=== PATIENT | female | born 1950 | race Caucasian/White ===

== ENCOUNTER 2019-10-16 10:40 | Inpatient (IN) ==
[2019-10-16] MEDS ORDERED: CeFAZolin Syr 2,000MG/20 ML 2,000 MG/20 ML SYRINGE IVPB ONE (11:13)
[2019-10-16] MEDS ORDERED: Ringers Solution, Lactated 1,000 ML IVC SCH (11:15)
[2019-10-16] MEDS ORDERED: *HR* Propofol 200 MG/20 ML VIAL IVP ONE (11:52)
[2019-10-16] MEDS ORDERED: *HR* FentaNYL (PF) 100 MCG/2 ML VIAL ONE ×2 (11:52→23:56)
[2019-10-16] MEDS ORDERED: Lidocaine -MPF 2% 2 ML VIAL ONE ×2 (11:53→23:59)
[2019-10-16] MEDS ORDERED: *HR* Succinylcholine 200 MG/10 ML VIAL IVP ONE ×2 (11:53→23:58)
[2019-10-16] MEDS ORDERED: Ondansetron 4 MG/2 ML VIAL ONE ×2 (11:53→18:21)
[2019-10-16] MEDS ORDERED: *HR* Rocuronium Bromide 50 MG/5 ML VIAL ONE ×2 (11:53→23:58)
[2019-10-16] MEDS ORDERED: Dexamethasone 4 MG/ML VIAL ONE (11:53)
[2019-10-16] MEDS ORDERED: Hydrocortisone Sodium Succ 100 MG/2 ML VIAL IVP ONE (12:42)
[2019-10-16] MEDS ORDERED: Famotidine 20 MG/2 ML VIAL IVP ONE (12:42)
[2019-10-16] MEDS ORDERED: Pregabalin 75 MG CAPSULE PO ONE (12:45)
[2019-10-16 12:47] LABS: Prothrombin Time 11.7 Seconds (9.4-12.1)
[2019-10-16 12:50] LABS: Activated Partial Thrombo Time 32.1 Seconds (26.0-36.0)
[2019-10-16] MEDS ORDERED: *HR* FentaNYL (PF) 100 MCG/2 ML VIAL IVP PRN (12:53)
[2019-10-16] MEDS ORDERED: Ondansetron 4 MG/2 ML VIAL IVP ONE (12:55)
[2019-10-16] MEDS ORDERED: Albuterol 2.5 MG/3 ML NEBULIZER IH PRN (12:56)
[2019-10-16] MEDS ORDERED: Naloxone 0.4 MG/ML INJ IVP PRN ×2 (12:56→16:51)
[2019-10-16] MEDS ORDERED: *HR* HYDROMORPHONE 2 MG/ML VIAL ONE (14:13)
[2019-10-16] MEDS ORDERED: *HR* PHENYLEPHRINE 1,000 MCG/10 ML SYRINGE IVP ONE (14:19)
[2019-10-16] MEDS ORDERED: Ketorolac 30 MG/ML VIAL ONE (15:11)
[2019-10-16] MEDS: *HR* HYDROmorphone PF 0.5 MG/0.5 ML SYRINGE IVP PRN ×4 (15:35→16:25)
[2019-10-16] MEDS ORDERED: *HR* HYDROcodone/Acet 5/325 mg TABLET PO PRN (16:51)
[2019-10-16] MEDS ORDERED: 0.9 % Sodium Chloride 1,000 ML IVC SCH ×2 (16:51→21:46)
[2019-10-16] MEDS: Albumin Human 5% 12.5 GM/250 ML IV.SOLN IVC SCH ×3 (18:09→22:24)
[2019-10-16] MEDS: Ipratropium/Albuterol Neb 3 ML IH SCH ×2 (20:39)
[2019-10-16] MEDS ORDERED: Famotidine 20 MG TABLET PO SCH (21:00)
[2019-10-16] MEDS ORDERED: Sennosides/Docusate Sodium TABLET PO SCH (21:00)
[2019-10-16] MEDS ORDERED: Gabapentin 300 MG CAPSULE PO SCH (21:00)
[2019-10-16] MEDS ORDERED: atenoloL 25 MG TABLET PO SCH (21:00)
[2019-10-16] MEDS ORDERED: Ondansetron 4 MG/2 ML VIAL IVP PRN (21:47)
[2019-10-16] MEDS ORDERED: Budesonide/Formoterol 160/4.5 1 PUFF INH IH SCH (22:00)
[2019-10-16] MEDS ORDERED: *HR* Heparin 5,000 UNIT/ML VIAL SQ SCH (22:00)
[2019-10-16 22:29] LABS: Basophils % 0.3 %
[2019-10-16 22:30] LABS: Basophils # 0.1 K/mcL (0.0-0.2); Eosinophils % 0.1 %; Hematocrit 36.9 % (35.3-44.9); Hemoglobin 11.5 g/dL (11.5-15.4); Immature Granulocytes % 0.9 % (0-4); Lymphocytes % 3.4 %; Mean Corpuscular HGB Conc 31.2 g/dL (31.6-35.5); Mean Corpuscular Hemoglobin 30.8 pg (28.0-33.3); Mean Corpuscular Volume 98.9 fL (83.0-100.0); Mean Platelet Volume 9.9 fL (9.4-12.4); Monocytes # 2.5 K/mcL (0.0-1.3); Monocytes % 9.1 %; Platelet Count 235 K/mcL (140-400); Red Blood Count 3.73 M/mcL (3.82-4.97); Red Cell Distribution Width 13.6 % (11.5-14.5); Segmented Neutrophils % 86.2 %; White Blood Count 27.8 K/mcL (4.3-11.1)
[2019-10-16 22:59] LABS: Platelet Estimate Normal (Normal)
[2019-10-16] MEDS ORDERED: 0.9 % Sodium Chloride 1,000 ML IVC ONE (23:40)
[2019-10-16] MEDS ORDERED: *HR* Etomidate 40 MG/20 ML VIAL IVP ONE (23:56)
[2019-10-17] MEDS: Ipratropium/Albuterol Neb 3 ML IH SCH ×6 (00:13→19:46)
[2019-10-17] MEDS ORDERED: *HR* Vasopressin 20 UNIT/ML VIAL ONE (00:21)
[2019-10-17] MEDS ORDERED: Tranexamic Acid 1,000 MG/10 ML VIAL ONE (00:55)
[2019-10-17 02:15] LABS: Hematocrit 25.5 % (35.3-44.9); Mean Corpuscular Hemoglobin 30.6 pg (28.0-33.3); Mean Corpuscular Volume 98.8 fL (83.0-100.0); Mean Platelet Volume 10.3 fL (9.4-12.4); Platelet Count 189 K/mcL (140-400); Red Blood Count 2.58 M/mcL (3.82-4.97); Red Cell Distribution Width 13.8 % (11.5-14.5); White Blood Count 22.2 K/mcL (4.3-11.1)
[2019-10-17 02:16] LABS: Hemoglobin 7.9 g/dL (11.5-15.4)
[2019-10-17 02:34] LABS: Calcium 7.4 mg/dL (8.6-10.3); Magnesium 1.8 mg/dL (1.6-2.6)
[2019-10-17] MEDS ORDERED: Naloxone 0.4 MG/ML INJ IVP PRN (02:44)
[2019-10-17] MEDS ORDERED: 0.9 % Sodium Chloride 1,000 ML IVC ONE (02:44)
[2019-10-17] MEDS ORDERED: Ondansetron 4 MG/2 ML VIAL IVP PRN (02:44)
[2019-10-17] MEDS: Albumin Human 5% 12.5 GM/250 ML IV.SOLN IVC SCH (02:46)
[2019-10-17 04:13] LABS: Basophils % 0.1 %; Hematocrit 32.8 % (35.3-44.9); Immature Granulocytes % 0.6 % (0-4); Lymphocytes # 0.7 K/mcL (0.6-4.6); Lymphocytes % 4.7 %; Mean Corpuscular Hemoglobin 29.3 pg (28.0-33.3); Mean Platelet Volume 10.1 fL (9.4-12.4); Monocytes % 6.4 %; Neutrophils # 13.3 K/mcL (1.6-8.9); Platelet Count 170 K/mcL (140-400); Red Blood Count 3.58 M/mcL (3.82-4.97); Red Cell Distribution Width 15.6 % (11.5-14.5); Segmented Neutrophils % 88.2 %; White Blood Count 15.1 K/mcL (4.3-11.1)
[2019-10-17 04:15] LABS: Hemoglobin 10.5 g/dL (11.5-15.4); Mean Corpuscular Volume 91.6 fL (83.0-100.0)
[2019-10-17 04:31] LABS: Calcium 6.2 mg/dL (8.6-10.3); Potassium 4.7 mEq/L (3.5-5.1)
[2019-10-17] MEDS ORDERED: 0.9 % Sodium Chloride 1,000 ML ONE (04:44)
[2019-10-17] MEDS: *HR* Heparin 5,000 UNIT/ML VIAL SQ SCH ×3 (06:33→20:15)
[2019-10-17] MEDS: Budesonide/Formoterol 160/4.5 1 PUFF INH IH SCH ×2 (07:34→19:48)
[2019-10-17] MEDS ORDERED: *HR* Glimepiride 2 MG TABLET PO SCH (08:00)
[2019-10-17] MEDS: atenoloL 25 MG TABLET PO SCH ×2 (08:54→20:15)
[2019-10-17] MEDS: *HR* Glimepiride 2 MG TABLET PO SCH (08:54)
[2019-10-17] MEDS ORDERED: lisinopriL 10 MG TABLET PO SCH (09:00)
[2019-10-17] MEDS ORDERED: Aspirin Enteric Coated 81 MG Tablet PO SCH (09:00)
[2019-10-17] MEDS ORDERED: NIFEdipine XL (24 HR) 60 MG TAB.ER.24 PO SCH (09:00)
[2019-10-17] MEDS ORDERED: Famotidine 20 MG TABLET PO SCH (09:00)
[2019-10-17] MEDS: Sennosides/Docusate Sodium TABLET PO SCH ×2 (10:32→20:15)
[2019-10-17] MEDS: Famotidine 20 MG TABLET PO SCH (10:32)
[2019-10-17] MEDS: Gabapentin 300 MG CAPSULE PO SCH ×3 (10:32→20:15)
[2019-10-17 12:12] LABS: Basophils % 0.3 %; Hematocrit 29.7 % (35.3-44.9); Hemoglobin 9.9 g/dL (11.5-15.4); Immature Granulocytes % 0.3 % (0-4); Lymphocytes # 1.9 K/mcL (0.6-4.6); Lymphocytes % 12.8 %; Mean Corpuscular HGB Conc 33.3 g/dL (31.6-35.5); Mean Corpuscular Hemoglobin 30.5 pg (28.0-33.3); Mean Corpuscular Volume 91.4 fL (83.0-100.0); Mean Platelet Volume 10.3 fL (9.4-12.4); Monocytes # 1.3 K/mcL (0.0-1.3); Monocytes % 9.2 %; Neutrophils # 11.3 K/mcL (1.6-8.9); Platelet Count 167 K/mcL (140-400); Red Blood Count 3.25 M/mcL (3.82-4.97); Red Cell Distribution Width 16.4 % (11.5-14.5); Segmented Neutrophils % 77.4 %; White Blood Count 14.6 K/mcL (4.3-11.1)
[2019-10-17 12:32] LABS: Calcium 6.5 mg/dL (8.6-10.3); Potassium 4.7 mEq/L (3.5-5.1)
[2019-10-17] MEDS: *HR* HYDROcodone/Acet 5/325 mg TABLET PO PRN ×2 (14:24→19:02)
[2019-10-18] MEDS: *HR* HYDROcodone/Acet 5/325 mg TABLET PO PRN ×5 (00:09→20:56)
[2019-10-18] MEDS: Ipratropium/Albuterol Neb 3 ML IH SCH ×7 (03:05→23:42)
[2019-10-18] MEDS: *HR* Heparin 5,000 UNIT/ML VIAL SQ SCH ×3 (04:48→20:54)
[2019-10-18 05:59] LABS: Basophils # 0.1 K/mcL (0.0-0.2); Basophils % 0.6 %; Eosinophils % 0.2 %; Hematocrit 27.2 % (35.3-44.9); Immature Granulocytes % 0.4 % (0-4); Mean Corpuscular HGB Conc 33.1 g/dL (31.6-35.5); Mean Corpuscular Hemoglobin 29.7 pg (28.0-33.3); Mean Corpuscular Volume 89.8 fL (83.0-100.0); Mean Platelet Volume 10.4 fL (9.4-12.4); Monocytes # 1.2 K/mcL (0.0-1.3); Monocytes % 9.4 %; Neutrophils # 9.3 K/mcL (1.6-8.9); Platelet Count 135 K/mcL (140-400); Red Blood Count 3.03 M/mcL (3.82-4.97); Red Cell Distribution Width 16.2 % (11.5-14.5); Segmented Neutrophils % 73.4 %; White Blood Count 12.6 K/mcL (4.3-11.1)
[2019-10-18 06:10] LABS: Calcium 7.1 mg/dL (8.6-10.3); Potassium 4.7 mEq/L (3.5-5.1)
[2019-10-18] MEDS: atenoloL 25 MG TABLET PO SCH ×2 (08:06→20:54)
[2019-10-18] MEDS: Gabapentin 300 MG CAPSULE PO SCH ×3 (08:10→20:54)
[2019-10-18] MEDS: Sennosides/Docusate Sodium TABLET PO SCH ×2 (08:11→20:54)
[2019-10-18] MEDS: Famotidine 20 MG TABLET PO SCH (08:11)
[2019-10-18] MEDS: Budesonide/Formoterol 160/4.5 1 PUFF INH IH SCH ×2 (08:12→20:15)
[2019-10-18] MEDS: *HR* Glimepiride 2 MG TABLET PO SCH (09:28)
[2019-10-19] MEDS: Ipratropium/Albuterol Neb 3 ML IH SCH ×6 (03:22→23:18)
[2019-10-19] MEDS: *HR* Heparin 5,000 UNIT/ML VIAL SQ SCH ×3 (06:11→21:01)
[2019-10-19] MEDS: Famotidine 20 MG TABLET PO SCH (07:43)
[2019-10-19] MEDS: *HR* Glimepiride 2 MG TABLET PO SCH (07:43)
[2019-10-19] MEDS: atenoloL 25 MG TABLET PO SCH ×2 (07:43→21:01)
[2019-10-19] MEDS: Sennosides/Docusate Sodium TABLET PO SCH ×2 (07:43→21:01)
[2019-10-19] MEDS: Gabapentin 300 MG CAPSULE PO SCH ×3 (07:43→21:01)
[2019-10-19] MEDS: Budesonide/Formoterol 160/4.5 1 PUFF INH IH SCH ×2 (07:44→19:32)
[2019-10-19] MEDS: *HR* HYDROcodone/Acet 5/325 mg TABLET PO PRN ×3 (07:47→19:33)
[2019-10-19] MEDS ORDERED: Naloxone 0.4 MG/ML INJ IVP PRN (13:37)
[2019-10-19] MEDS ORDERED: Ondansetron 4 MG/2 ML VIAL IVP PRN (13:37)
[2019-10-20] MEDS: *HR* HYDROcodone/Acet 5/325 mg TABLET PO PRN ×4 (03:15→20:17)
[2019-10-20] MEDS: Ipratropium/Albuterol Neb 3 ML IH SCH ×6 (03:18→23:20)
[2019-10-20] MEDS: *HR* Heparin 5,000 UNIT/ML VIAL SQ SCH ×3 (06:05→20:18)
[2019-10-20] MEDS: Gabapentin 300 MG CAPSULE PO SCH ×3 (07:34→20:18)
[2019-10-20] MEDS: Sennosides/Docusate Sodium TABLET PO SCH ×2 (07:35→20:17)
[2019-10-20] MEDS: Famotidine 20 MG TABLET PO SCH (07:35)
[2019-10-20] MEDS: atenoloL 25 MG TABLET PO SCH ×2 (07:35→20:17)
[2019-10-20] MEDS: Budesonide/Formoterol 160/4.5 1 PUFF INH IH SCH ×2 (07:37→19:57)
[2019-10-20] MEDS: *HR* Glimepiride 2 MG TABLET PO SCH (07:38)
[2019-10-20 11:36] LABS: Basophils # 0.1 K/mcL (0.0-0.2); Basophils % 0.6 %; Eosinophils # 0.2 K/mcL (0.0-0.6); Eosinophils % 1.4 %; Hematocrit 28.4 % (35.3-44.9); Lymphocytes # 1.1 K/mcL (0.6-4.6); Lymphocytes % 10.1 %; Mean Corpuscular HGB Conc 31.7 g/dL (31.6-35.5); Mean Corpuscular Hemoglobin 29.1 pg (28.0-33.3); Mean Corpuscular Volume 91.9 fL (83.0-100.0); Mean Platelet Volume 10.1 fL (9.4-12.4); Monocytes % 9.2 %; Neutrophils # 8.5 K/mcL (1.6-8.9); Platelet Count 179 K/mcL (140-400); Red Blood Count 3.09 M/mcL (3.82-4.97); Red Cell Distribution Width 15.4 % (11.5-14.5); Segmented Neutrophils % 77.7 %; White Blood Count 10.9 K/mcL (4.3-11.1)
[2019-10-20 11:57] LABS: BUN/Creatinine Ratio 15 (6-26); Blood Urea Nitrogen 13 mg/dL (8-23); Calcium 8.5 mg/dL (8.6-10.3); Carbon Dioxide 26 mEq/L (23-29); Chloride 108 mEq/L (98-107); Glucose 190 mg/dL (70-105); Magnesium 1.8 mg/dL (1.6-2.6); Osmolality,Calculated 299 (280-300); Potassium 4.1 mEq/L (3.5-5.1); Sodium 142 mEq/L (136-145); eGFR For African Americans > 60 (> 60); eGFR For Non-African Americans > 60 (> 60)
[2019-10-21] MEDS: Ipratropium/Albuterol Neb 3 ML IH SCH ×2 (03:19→07:50)
[2019-10-21] MEDS: *HR* Heparin 5,000 UNIT/ML VIAL SQ SCH (05:00)
[2019-10-21 07:20] VITALS: BP 160/72
[2019-10-21] MEDS: Budesonide/Formoterol 160/4.5 1 PUFF INH IH SCH (07:50)
[2019-10-21] MEDS ORDERED: lisinopriL 10 MG TABLET PO SCH (09:00)
[2019-10-21] MEDS: atenoloL 25 MG TABLET PO SCH (09:00)
[2019-10-21] MEDS: Gabapentin 300 MG CAPSULE PO SCH (09:00)
[2019-10-21] MEDS: Famotidine 20 MG TABLET PO SCH (09:00)
[2019-10-21] MEDS: Sennosides/Docusate Sodium TABLET PO SCH (09:00)
[2019-10-21] MEDS: *HR* Glimepiride 2 MG TABLET PO SCH (09:02)
== END 2019-10-21 10:53 | disposition home or self-care (01) | DRG 164 ==
LOC: SAMDAY 10:40 → 2NNU 16:51 → ICNU 10-17 01:32 → 2NNU 10-20 12:46
PROVIDERS: ADMIT Thoracic Surgery (Cardiothoracic Vascular Surgery); ATTEND Thoracic Surgery (Cardiothoracic Vascular Surgery)

== ENCOUNTER 2019-10-22 22:40 | Inpatient (IN) ==
[2019-10-22] MEDS ORDERED: 0.9 % Sodium Chloride 250 ML ONE (22:59)
[2019-10-22 23:08] LABS: Basophils # 0.1 K/mcL (0.0-0.2); Basophils % 0.4 %; Eosinophils # 0.2 K/mcL (0.0-0.6); Eosinophils % 1.9 %; Hematocrit 21.6 % (35.3-44.9); Immature Granulocytes % 2.5 % (0-4); Lymphocytes # 1.6 K/mcL (0.6-4.6); Lymphocytes % 13.2 %; Mean Corpuscular HGB Conc 31.5 g/dL (31.6-35.5); Mean Corpuscular Hemoglobin 29.3 pg (28.0-33.3); Mean Corpuscular Volume 93.1 fL (83.0-100.0); Mean Platelet Volume 9.7 fL (9.4-12.4); Monocytes # 1.3 K/mcL (0.0-1.3); Monocytes % 10.6 %; Neutrophils # 8.5 K/mcL (1.6-8.9); Platelet Count 254 K/mcL (140-400); Red Blood Count 2.32 M/mcL (3.82-4.97); Red Cell Distribution Width 14.8 % (11.5-14.5); Segmented Neutrophils % 71.4 %; White Blood Count 11.8 K/mcL (4.3-11.1)
[2019-10-22 23:10] LABS: Hemoglobin 6.8 g/dL (11.5-15.4)
[2019-10-22 23:21] LABS: ABG Base Excess 1 mEq/L (-2 to 3); ABG HCO3 25 mEq/L (21-27); ABG Oxygen Saturation 89 % (95-98); ABG PCO2 41 mmHg (35-45); ABG PO2 56 mmHg (85-104); ABG TCO2 27 mEq/L (20-26)
[2019-10-22 23:33] LABS: Alanine Aminotransferase 16 Units/L (7-52); Albumin 2.6 g/dL (3.5-5.7); Albumin/Globulin Ratio 1.3 (1.1-2.2); Alkaline Phosphatase 82 Units/L (34-104); Aspartate Amino Transferase 26 Units/L (13-39); BUN/Creatinine Ratio 21 (6-26); Bilirubin,Direct 0.2 mg/dL (0.0-0.2); Bilirubin,Indirect 0.4 mg/dL (0.0-1.0); Bilirubin,Total 0.6 mg/dL (0.3-1.0); Blood Urea Nitrogen 17 mg/dL (8-23); Calcium 7.4 mg/dL (8.6-10.3); Carbon Dioxide 25 mEq/L (23-29); Chloride 111 mEq/L (98-107); Glucose 163 mg/dL (70-105); Lipase 12 Units/L (11-82); Osmolality,Calculated 301 (280-300); Sodium 143 mEq/L (136-145); Total Protein 4.6 g/dL (6.4-8.9); eGFR For African Americans > 60 (> 60); eGFR For Non-African Americans > 60 (> 60)
[2019-10-22 23:34] LABS: Troponin I < 0.03 ng/mL (< 0.04)
[2019-10-23] MEDS ORDERED: *HR* Rocuronium Bromide 50 MG/5 ML VIAL ONE (00:18)
[2019-10-23] MEDS ORDERED: Lidocaine -MPF 2% 2 ML VIAL ONE (00:18)
[2019-10-23] MEDS ORDERED: *HR* Succinylcholine 200 MG/10 ML VIAL IVP ONE (00:18)
[2019-10-23] MEDS ORDERED: *HR* Propofol 200 MG/20 ML VIAL IVP ONE (00:19)
[2019-10-23] MEDS ORDERED: *HR* PHENYLEPHRINE 1,000 MCG/10 ML SYRINGE IVP ONE (00:20)
[2019-10-23] MEDS ORDERED: *HR* EPINEPHrine 1 MG/10 ML SYRINGE ONE (00:20)
[2019-10-23] MEDS ORDERED: *HR* FentaNYL (PF) 100 MCG/2 ML VIAL ONE (00:22)
[2019-10-23 00:33] LABS: INR 1.1; Prothrombin Time 12.5 Seconds (9.4-12.1)
[2019-10-23 00:35] LABS: Activated Partial Thrombo Time 24.6 Seconds (26.0-36.0)
[2019-10-23] MEDS ORDERED: CeFAZolin Syr 2,000MG/20 ML 2,000 MG/20 ML SYRINGE IVPB ONE ×2 (00:58→07:43)
[2019-10-23] MEDS ORDERED: Tranexamic Acid 1,000 MG/10 ML VIAL IVP ONE ×2 (02:00→07:43)
[2019-10-23] MEDS ORDERED: 0.9 % Sodium Chloride 500 ML ONE (02:02)
[2019-10-23] MEDS ORDERED: *HR* Midazolam HCl 2 MG/2 ML VIAL ONE (02:07)
[2019-10-23] MEDS ORDERED: Ondansetron 4 MG/2 ML VIAL IVP PRN ×2 (02:16→07:43)
[2019-10-23] MEDS ORDERED: 0.9 % Sodium Chloride 1,000 ML IVC SCH (02:30)
[2019-10-23] MEDS: *HR* HYDROmorphone (PF) 1 MG/ML SYRINGE IVP PRN ×7 (02:30→22:55)
[2019-10-23 04:02] LABS: Hematocrit 26.3 % (35.3-44.9); Mean Corpuscular HGB Conc 32.7 g/dL (31.6-35.5); Mean Corpuscular Hemoglobin 30.2 pg (28.0-33.3); Mean Corpuscular Volume 92.3 fL (83.0-100.0); Mean Platelet Volume 9.7 fL (9.4-12.4); Platelet Count 202 K/mcL (140-400); Red Blood Count 2.85 M/mcL (3.82-4.97); Red Cell Distribution Width 14.7 % (11.5-14.5); White Blood Count 14.7 K/mcL (4.3-11.1)
[2019-10-23 04:03] LABS: Hemoglobin 8.6 g/dL (11.5-15.4)
[2019-10-23 04:28] LABS: BUN/Creatinine Ratio 23 (6-26); Blood Urea Nitrogen 19 mg/dL (8-23); Calcium 7.2 mg/dL (8.6-10.3); Carbon Dioxide 24 mEq/L (23-29); Chloride 109 mEq/L (98-107); Glucose 252 mg/dL (70-105); Magnesium 1.6 mg/dL (1.6-2.6); Osmolality,Calculated 301 (280-300); Potassium 4.7 mEq/L (3.5-5.1); Sodium 140 mEq/L (136-145); eGFR For African Americans > 60 (> 60); eGFR For Non-African Americans > 60 (> 60)
[2019-10-23] MEDS ORDERED: *HR* Heparin 5,000 UNIT/ML VIAL SQ SCH (06:00)
[2019-10-23] MEDS ORDERED: Famotidine 20 MG/2 ML VIAL IVP SCH ×2 (06:00→18:00)
[2019-10-23] MEDS ORDERED: Calcium Gluconate 1gm/50mL 1 GM/50 ML BAG IVPB ONE (06:14)
[2019-10-23] MEDS ORDERED: ceFAZolin 2,000 MG in 0.9 % Sodium Chloride 100 ML IVPB ONE (08:31)
[2019-10-23 09:39] LABS: ABG Base Excess 1 mEq/L (-2 to 3); ABG HCO3 27 mEq/L (21-27); ABG Oxygen Saturation 97 % (95-98); ABG PCO2 47 mmHg (35-45); ABG PH 7.37 pH Units (7.32-7.45); ABG PO2 93 mmHg (85-104); ABG TCO2 28 mEq/L (20-26); Blood Gas Modality CPAP/PS; Blood Gas Pressure Support 8 cm H2O
[2019-10-23 13:26] LABS: Basophils # 0.1 K/mcL (0.0-0.2); Basophils % 0.4 %; Eosinophils % 0.1 %; Hematocrit 25.2 % (35.3-44.9); Hemoglobin 8.2 g/dL (11.5-15.4); Immature Granulocytes % 2.5 % (0-4); Lymphocytes # 0.8 K/mcL (0.6-4.6); Lymphocytes % 6.1 %; Mean Corpuscular HGB Conc 32.5 g/dL (31.6-35.5); Mean Corpuscular Hemoglobin 29.2 pg (28.0-33.3); Mean Corpuscular Volume 89.7 fL (83.0-100.0); Mean Platelet Volume 9.8 fL (9.4-12.4); Monocytes # 1.5 K/mcL (0.0-1.3); Monocytes % 11.1 %; Platelet Count 232 K/mcL (140-400); Red Blood Count 2.81 M/mcL (3.82-4.97); Red Cell Distribution Width 15.4 % (11.5-14.5); Segmented Neutrophils % 79.8 %; White Blood Count 13.8 K/mcL (4.3-11.1)
[2019-10-23] MEDS: *HR* Heparin 5,000 UNIT/ML VIAL SQ SCH ×2 (14:59→22:10)
[2019-10-23] MEDS: 0.9 % Sodium Chloride 1,000 ML IVC SCH (16:25)
[2019-10-24] MEDS: 0.9 % Sodium Chloride 1,000 ML IVC SCH ×3 (00:32→20:18)
[2019-10-24] MEDS: *HR* HYDROmorphone (PF) 1 MG/ML SYRINGE IVP PRN ×10 (00:46→23:27)
[2019-10-24 04:45] LABS: ABG Base Excess -1 mEq/L (-2 to 3); ABG HCO3 25 mEq/L (21-27); ABG Oxygen Saturation 94 % (95-98); ABG PCO2 48 mmHg (35-45); ABG PH 7.32 pH Units (7.32-7.45); ABG PO2 77 mmHg (85-104); ABG TCO2 26 mEq/L (20-26); Blood Gas Modality AF; Blood Gas VT 450 cc
[2019-10-24 04:48] LABS: Hematocrit 25.8 % (35.3-44.9); Hemoglobin 8.1 g/dL (11.5-15.4); Mean Corpuscular HGB Conc 31.4 g/dL (31.6-35.5); Mean Corpuscular Hemoglobin 29.3 pg (28.0-33.3); Mean Corpuscular Volume 93.5 fL (83.0-100.0); Mean Platelet Volume 9.4 fL (9.4-12.4); Platelet Count 281 K/mcL (140-400); Red Blood Count 2.76 M/mcL (3.82-4.97); Red Cell Distribution Width 15.3 % (11.5-14.5); White Blood Count 16.7 K/mcL (4.3-11.1)
[2019-10-24 05:07] LABS: BUN/Creatinine Ratio 29 (6-26); Blood Urea Nitrogen 22 mg/dL (8-23); Calcium 7.8 mg/dL (8.6-10.3); Carbon Dioxide 23 mEq/L (23-29); Chloride 109 mEq/L (98-107); Glucose 189 mg/dL (70-105); Magnesium 2.3 mg/dL (1.6-2.6); Osmolality,Calculated 300 (280-300); Potassium 4.5 mEq/L (3.5-5.1); Sodium 141 mEq/L (136-145); eGFR For African Americans > 60 (> 60); eGFR For Non-African Americans > 60 (> 60)
[2019-10-24] MEDS: *HR* Heparin 5,000 UNIT/ML VIAL SQ SCH ×3 (05:39→21:36)
[2019-10-24] MEDS: Famotidine 20 MG/2 ML VIAL IVP SCH (07:26)
[2019-10-24] MEDS ORDERED: Dextrose Gel 15 GM/37.5 ML TUBE PO PRN ×2 (07:40)
[2019-10-24] MEDS ORDERED: *HR* Dextrose 50 % in Water (Vial) 50 ML VIAL IVP PRN (07:40)
[2019-10-24] MEDS ORDERED: D5% in Water 1,000 ML IVC PRN (07:40)
[2019-10-24] MEDS ORDERED: Ipratropium/Albuterol Neb 3 ML ONE (07:55)
[2019-10-24] MEDS: Ipratropium/Albuterol Neb 3 ML IH SCH ×5 (07:59→23:20)
[2019-10-24] MEDS: Chlorhexidine Rinse 15 ML MOUTHWASH MM SCH ×2 (08:56→20:06)
[2019-10-24] MEDS: Insulin LISPRO 300 UNITS/3 ML VIAL SQ SCH ×3 (12:32→23:32)
[2019-10-25] MEDS: Ipratropium/Albuterol Neb 3 ML IH SCH ×6 (03:22→23:13)
[2019-10-25 04:16] LABS: ABG Base Excess 0 mEq/L (-2 to 3); ABG HCO3 26 mEq/L (21-27); ABG Oxygen Saturation 94 % (95-98); ABG PCO2 48 mmHg (35-45); ABG PH 7.35 pH Units (7.32-7.45); ABG PO2 74 mmHg (85-104); ABG TCO2 28 mEq/L (20-26); Blood Gas Modality AF; Blood Gas VT 450 cc
[2019-10-25] MEDS: *HR* HYDROmorphone (PF) 1 MG/ML SYRINGE IVP PRN (04:43)
[2019-10-25 04:44] LABS: Basophils % 0.2 %; Eosinophils % 0.1 %; Hematocrit 26.2 % (35.3-44.9); Immature Granulocytes % 1.5 % (0-4); Lymphocytes # 0.9 K/mcL (0.6-4.6); Lymphocytes % 5.3 %; Mean Corpuscular HGB Conc 30.5 g/dL (31.6-35.5); Mean Corpuscular Hemoglobin 29.4 pg (28.0-33.3); Mean Corpuscular Volume 96.3 fL (83.0-100.0); Mean Platelet Volume 9.2 fL (9.4-12.4); Monocytes # 1.8 K/mcL (0.0-1.3); Monocytes % 10.1 %; Neutrophils # 14.7 K/mcL (1.6-8.9); Nucleated Red Blood Cells 0.1 /100 WBC (0); Platelet Count 350 K/mcL (140-400); Red Blood Count 2.72 M/mcL (3.82-4.97); Red Cell Distribution Width 15.2 % (11.5-14.5); Segmented Neutrophils % 82.8 %; White Blood Count 17.8 K/mcL (4.3-11.1)
[2019-10-25 05:07] LABS: BUN/Creatinine Ratio 34 (6-26); Blood Urea Nitrogen 27 mg/dL (8-23); Calcium 8.2 mg/dL (8.6-10.3); Carbon Dioxide 25 mEq/L (23-29); Chloride 107 mEq/L (98-107); Glucose 214 mg/dL (70-105); Magnesium 2.3 mg/dL (1.6-2.6); Osmolality,Calculated 306 (280-300); Phosphorous 2.7 mg/dL (2.7-4.5); Potassium 4.6 mEq/L (3.5-5.1); Sodium 142 mEq/L (136-145); eGFR For African Americans > 60 (> 60); eGFR For Non-African Americans > 60 (> 60)
[2019-10-25] MEDS: *HR* Heparin 5,000 UNIT/ML VIAL SQ SCH ×3 (06:18→20:43)
[2019-10-25] MEDS: Insulin LISPRO 300 UNITS/3 ML VIAL SQ SCH ×3 (06:19→17:52)
[2019-10-25] MEDS: Chlorhexidine Rinse 15 ML MOUTHWASH MM SCH ×2 (08:39→20:43)
[2019-10-25] MEDS: Famotidine 20 MG/2 ML VIAL IVP SCH (08:40)
[2019-10-25] MEDS: 0.9 % Sodium Chloride 1,000 ML IVC SCH ×2 (09:42→23:00)
[2019-10-25] MEDS: FentaNYL (PF) 1,000 MCG/100 ML IV.SOLN IVC SCH ×2 (09:43→19:48)
[2019-10-25] MEDS: Artificial Tears SOLN 15 ML BOTTLE BOTH EYES SCH ×4 (10:34→20:43)
[2019-10-25] MEDS ORDERED: *HR* Metoprolol 5 MG/5 ML VIAL IVP ONE (14:11)
[2019-10-26] MEDS: Insulin LISPRO 300 UNITS/3 ML VIAL SQ SCH ×5 (01:25→23:32)
[2019-10-26] MEDS: Ipratropium/Albuterol Neb 3 ML IH SCH ×5 (03:15→19:37)
[2019-10-26] MEDS: FentaNYL (PF) 1,000 MCG/100 ML IV.SOLN IVC SCH ×3 (03:30→18:17)
[2019-10-26 04:14] LABS: Basophils # 0.1 K/mcL (0.0-0.2); Basophils % 0.4 %; Eosinophils # 0.3 K/mcL (0.0-0.6); Eosinophils % 1.3 %; Hematocrit 25.2 % (35.3-44.9); Hemoglobin 7.7 g/dL (11.5-15.4); Immature Granulocytes % 1.3 % (0-4); Lymphocytes # 1.1 K/mcL (0.6-4.6); Lymphocytes % 5.7 %; Mean Corpuscular HGB Conc 30.6 g/dL (31.6-35.5); Mean Corpuscular Hemoglobin 30.2 pg (28.0-33.3); Mean Corpuscular Volume 98.8 fL (83.0-100.0); Mean Platelet Volume 9.4 fL (9.4-12.4); Monocytes # 1.6 K/mcL (0.0-1.3); Monocytes % 8.7 %; Neutrophils # 15.3 K/mcL (1.6-8.9); Platelet Count 349 K/mcL (140-400); Red Blood Count 2.55 M/mcL (3.82-4.97); Red Cell Distribution Width 14.9 % (11.5-14.5); Segmented Neutrophils % 82.6 %; White Blood Count 18.5 K/mcL (4.3-11.1)
[2019-10-26 04:25] LABS: BUN/Creatinine Ratio 39 (6-26); Blood Urea Nitrogen 27 mg/dL (8-23); Carbon Dioxide 28 mEq/L (23-29); Chloride 111 mEq/L (98-107); Glucose 242 mg/dL (70-105); Magnesium 2.1 mg/dL (1.6-2.6); Osmolality,Calculated 307 (280-300); Potassium 4.5 mEq/L (3.5-5.1); Sodium 142 mEq/L (136-145); eGFR For African Americans > 60 (> 60); eGFR For Non-African Americans > 60 (> 60)
[2019-10-26 04:37] LABS: ABG Base Excess 2 mEq/L (-2 to 3); ABG HCO3 30 mEq/L (21-27); ABG Oxygen Saturation 87 % (95-98); ABG PCO2 63 mmHg (35-45); ABG PH 7.28 pH Units (7.32-7.45); ABG PO2 62 mmHg (85-104); ABG TCO2 32 mEq/L (20-26); Blood Gas Modality AF; Blood Gas VT 450 cc
[2019-10-26] MEDS: *HR* Heparin 5,000 UNIT/ML VIAL SQ SCH ×3 (06:04→23:34)
[2019-10-26] MEDS: Chlorhexidine Rinse 15 ML MOUTHWASH MM SCH ×2 (08:23→19:58)
[2019-10-26] MEDS: Famotidine 20 MG/2 ML VIAL IVP SCH (08:23)
[2019-10-26] MEDS: Artificial Tears SOLN 15 ML BOTTLE BOTH EYES SCH ×4 (08:24→19:57)
[2019-10-26] MEDS: 0.9 % Sodium Chloride 1,000 ML IVC SCH ×2 (08:26→21:50)
[2019-10-26] MEDS ORDERED: 0.9 % Sodium Chloride 250 ML ONE (09:29)
[2019-10-27] MEDS: Ipratropium/Albuterol Neb 3 ML IH SCH ×7 (00:06→23:16)
[2019-10-27] MEDS: FentaNYL (PF) 1,000 MCG/100 ML IV.SOLN IVC SCH ×4 (00:28→22:41)
[2019-10-27 03:31] LABS: Basophils # 0.1 K/mcL (0.0-0.2); Basophils % 0.4 %; Eosinophils # 0.1 K/mcL (0.0-0.6); Eosinophils % 0.5 %; Hematocrit 30.7 % (35.3-44.9); Immature Granulocytes % 1.1 % (0-4); Lymphocytes # 1.2 K/mcL (0.6-4.6); Lymphocytes % 5.2 %; Mean Corpuscular HGB Conc 30.3 g/dL (31.6-35.5); Mean Corpuscular Hemoglobin 30.2 pg (28.0-33.3); Mean Corpuscular Volume 99.7 fL (83.0-100.0); Mean Platelet Volume 9.4 fL (9.4-12.4); Monocytes # 1.9 K/mcL (0.0-1.3); Monocytes % 8.5 %; Neutrophils # 18.6 K/mcL (1.6-8.9); Nucleated Red Blood Cells 0.1 /100 WBC (0); Platelet Count 335 K/mcL (140-400); Red Blood Count 3.08 M/mcL (3.82-4.97); Red Cell Distribution Width 15.4 % (11.5-14.5); Segmented Neutrophils % 84.3 %; White Blood Count 22.1 K/mcL (4.3-11.1)
[2019-10-27 03:33] LABS: Hemoglobin 9.3 g/dL (11.5-15.4)
[2019-10-27 03:49] LABS: BUN/Creatinine Ratio 34 (6-26); Blood Urea Nitrogen 30 mg/dL (8-23); Calcium 7.7 mg/dL (8.6-10.3); Carbon Dioxide 26 mEq/L (23-29); Chloride 112 mEq/L (98-107); Glucose 257 mg/dL (70-105); Magnesium 2.4 mg/dL (1.6-2.6); Osmolality,Calculated 311 (280-300); Phosphorous 3.4 mg/dL (2.7-4.5); Sodium 143 mEq/L (136-145); eGFR For African Americans > 60 (> 60); eGFR For Non-African Americans > 60 (> 60)
[2019-10-27 04:37] LABS: ABG Base Excess 0 mEq/L (-2 to 3); ABG HCO3 28 mEq/L (21-27); ABG Oxygen Saturation 86 % (95-98); ABG PCO2 68 mmHg (35-45); ABG PH 7.23 pH Units (7.32-7.45); ABG PO2 63 mmHg (85-104); ABG TCO2 30 mEq/L (20-26); Blood Gas Modality ASSIST CONTROL; Blood Gas VT 450 cc
[2019-10-27] MEDS: Insulin LISPRO 300 UNITS/3 ML VIAL SQ SCH ×4 (05:46→21:43)
[2019-10-27] MEDS: *HR* Heparin 5,000 UNIT/ML VIAL SQ SCH ×3 (05:49→21:12)
[2019-10-27] MEDS: Artificial Tears SOLN 15 ML BOTTLE BOTH EYES SCH ×4 (07:53→21:13)
[2019-10-27] MEDS: Famotidine 20 MG/2 ML VIAL IVP SCH (07:53)
[2019-10-27] MEDS: Chlorhexidine Rinse 15 ML MOUTHWASH MM SCH ×2 (07:53→21:11)
[2019-10-27] MEDS: 0.9 % Sodium Chloride 1,000 ML IVC SCH ×2 (08:47→15:20)
[2019-10-27] MEDS: Dexmedetomidine HCl 400 MCG/100 ML MLS IVC SCH ×2 (10:01→22:30)
[2019-10-27] MEDS ORDERED: Insulin DETEMIR 100 UNIT/ML X5UNITS SQ SCH (10:45)
[2019-10-27] MEDS: MethylPREDNISolone 40 MG/ML VIAL IVP SCH ×2 (11:03→21:13)
[2019-10-27] MEDS: Nicotine 14 MG PATCH.TD24 TD SCH (11:07)
[2019-10-27] MEDS: Cefepime HCl 2,000 MG in Water for inj. (sterile) 20 ML IVP SCH ×2 (11:23→21:11)
[2019-10-27] MEDS: Albumin Human 5% 12.5 GM/250 ML IV.SOLN IVC SCH ×2 (14:00→14:25)
[2019-10-27 17:29] LABS: Basophils % 0.1 %; Eosinophils % 0.1 %; Hematocrit 27.2 % (35.3-44.9); Hemoglobin 8.3 g/dL (11.5-15.4); Immature Granulocytes % 0.9 % (0-4); Lymphocytes # 0.3 K/mcL (0.6-4.6); Lymphocytes % 1.9 %; Mean Corpuscular HGB Conc 30.5 g/dL (31.6-35.5); Mean Corpuscular Volume 98.2 fL (83.0-100.0); Mean Platelet Volume 9.8 fL (9.4-12.4); Monocytes # 0.4 K/mcL (0.0-1.3); Monocytes % 2.5 %; Neutrophils # 14.8 K/mcL (1.6-8.9); Nucleated Red Blood Cells 0.2 /100 WBC (0); Platelet Count 295 K/mcL (140-400); Red Blood Count 2.77 M/mcL (3.82-4.97); Red Cell Distribution Width 14.9 % (11.5-14.5); Segmented Neutrophils % 94.5 %; White Blood Count 15.7 K/mcL (4.3-11.1)
[2019-10-28] MEDS: Ipratropium/Albuterol Neb 3 ML IH SCH ×5 (03:23→19:49)
[2019-10-28 04:20] LABS: ABG Base Excess -3 mEq/L (-2 to 3); ABG HCO3 26 mEq/L (21-27); ABG Oxygen Saturation 88 % (95-98); ABG PCO2 66 mmHg (35-45); ABG PO2 68 mmHg (85-104); ABG TCO2 28 mEq/L (20-26); Blood Gas Modality ASSIST CONTROL; Blood Gas VT 460 cc
[2019-10-28 04:59] LABS: Basophils % 0.2 %; Hematocrit 28.7 % (35.3-44.9); Hemoglobin 8.6 g/dL (11.5-15.4); Immature Granulocytes % 1.2 % (0-4); Lymphocytes # 0.3 K/mcL (0.6-4.6); Lymphocytes % 1.2 %; Monocytes # 0.7 K/mcL (0.0-1.3); Monocytes % 3.4 %; Neutrophils # 19.2 K/mcL (1.6-8.9); Nucleated Red Blood Cells 0.2 /100 WBC (0); Platelet Count 362 K/mcL (140-400); Red Blood Count 2.87 M/mcL (3.82-4.97); Red Cell Distribution Width 14.8 % (11.5-14.5); White Blood Count 20.4 K/mcL (4.3-11.1)
[2019-10-28 05:21] LABS: Calcium 7.8 mg/dL (8.6-10.3); Magnesium 2.6 mg/dL (1.6-2.6); Potassium 5.6 mEq/L (3.5-5.1)
[2019-10-28] MEDS: *HR* Heparin 5,000 UNIT/ML VIAL SQ SCH ×3 (05:59→20:42)
[2019-10-28] MEDS: Insulin LISPRO 300 UNITS/3 ML VIAL SQ SCH ×2 (06:10)
[2019-10-28] MEDS: FentaNYL (PF) 1,000 MCG/100 ML IV.SOLN IVC SCH ×3 (06:12→19:52)
[2019-10-28] MEDS: Dexmedetomidine HCl 400 MCG/100 ML MLS IVC SCH ×3 (06:35→18:54)
[2019-10-28] MEDS ORDERED: Furosemide 20 MG/2 ML VIAL IVP ONE ×2 (07:28→20:25)
[2019-10-28 07:49] LABS: ABG Base Excess 0 mEq/L (-2 to 3); ABG HCO3 27 mEq/L (21-27); ABG Oxygen Saturation 81 % (95-98); ABG PCO2 54 mmHg (35-45); ABG PO2 51 mmHg (85-104); ABG TCO2 28 mEq/L (20-26); Blood Gas Modality VC; Blood Gas VT 500 cc
[2019-10-28 07:56] LABS: ABG Base Excess -1 mEq/L (-2 to 3); ABG HCO3 26 mEq/L (21-27); ABG Oxygen Saturation 82 % (95-98); ABG PCO2 53 mmHg (35-45); ABG PO2 52 mmHg (85-104); ABG TCO2 28 mEq/L (20-26); Blood Gas Modality AF; Blood Gas VT 500 cc
[2019-10-28] MEDS: Insulin Human Regular 100 UNIT in 0.9 % Sodium Chloride 100 ML IVC SCH ×3 (08:09→23:00)
[2019-10-28] MEDS: Nicotine 14 MG PATCH.TD24 TD SCH (08:12)
[2019-10-28] MEDS: Chlorhexidine Rinse 15 ML MOUTHWASH MM SCH ×2 (08:13→20:43)
[2019-10-28] MEDS: Famotidine 20 MG/2 ML VIAL IVP SCH (08:13)
[2019-10-28] MEDS: Artificial Tears SOLN 15 ML BOTTLE BOTH EYES SCH ×4 (09:14→21:13)
[2019-10-28] MEDS: Cefepime HCl 2,000 MG in Water for inj. (sterile) 20 ML IVP SCH ×3 (09:20→23:31)
[2019-10-28] MEDS: MethylPREDNISolone 40 MG/ML VIAL IVP SCH ×2 (09:20→20:42)
[2019-10-28] MEDS: polyethylene glycoL 3350 17 GM POWD.PACK GTUBE SCH (09:33)
[2019-10-28 12:44] LABS: Potassium 4.3 mEq/L (3.5-5.1)
[2019-10-28 18:38] LABS: ABG Base Excess -2 mEq/L (-2 to 3); ABG HCO3 27 mEq/L (21-27); ABG Oxygen Saturation 92 % (95-98); ABG PCO2 75 mmHg (35-45); ABG PH 7.17 pH Units (7.32-7.45); ABG PO2 83 mmHg (85-104); ABG TCO2 30 mEq/L (20-26); Blood Gas Modality VC; Blood Gas VT 500 cc
[2019-10-28 20:24] LABS: ABG Base Excess 0 mEq/L (-2 to 3); ABG HCO3 29 mEq/L (21-27); ABG Oxygen Saturation 95 % (95-98); ABG PCO2 67 mmHg (35-45); ABG PH 7.24 pH Units (7.32-7.45); ABG PO2 91 mmHg (85-104); ABG TCO2 31 mEq/L (20-26); Blood Gas Modality ASSIST CONTROL; Blood Gas VT 500 cc
[2019-10-29] MEDS: Ipratropium/Albuterol Neb 3 ML IH SCH ×6 (00:07→20:02)
[2019-10-29] MEDS: Dexmedetomidine HCl 400 MCG/100 ML MLS IVC SCH ×4 (00:30→18:50)
[2019-10-29] MEDS: FentaNYL (PF) 1,000 MCG/100 ML IV.SOLN IVC SCH ×3 (03:28→17:27)
[2019-10-29 04:04] LABS: ABG Base Excess 1 mEq/L (-2 to 3); ABG HCO3 28 mEq/L (21-27); ABG Oxygen Saturation 95 % (95-98); ABG PCO2 55 mmHg (35-45); ABG PH 7.31 pH Units (7.32-7.45); ABG PO2 82 mmHg (85-104); ABG TCO2 29 mEq/L (20-26); Blood Gas Modality ASSIST CONTROL; Blood Gas VT 500 cc
[2019-10-29 04:34] LABS: VBG Ionized Calcium 1.16 mmol/L (1.15-1.35)
[2019-10-29 04:40] LABS: Basophils % 0.1 %; Hematocrit 27.1 % (35.3-44.9); Hemoglobin 8.1 g/dL (11.5-15.4); Immature Granulocytes % 1.1 % (0-4); Lymphocytes # 0.5 K/mcL (0.6-4.6); Lymphocytes % 2.6 %; Mean Corpuscular HGB Conc 29.9 g/dL (31.6-35.5); Mean Corpuscular Hemoglobin 29.2 pg (28.0-33.3); Mean Corpuscular Volume 97.8 fL (83.0-100.0); Mean Platelet Volume 9.9 fL (9.4-12.4); Monocytes # 0.7 K/mcL (0.0-1.3); Monocytes % 3.4 %; Neutrophils # 19.6 K/mcL (1.6-8.9); Nucleated Red Blood Cells 0.3 /100 WBC (0); Platelet Count 376 K/mcL (140-400); Red Blood Count 2.77 M/mcL (3.82-4.97); Red Cell Distribution Width 14.5 % (11.5-14.5); Segmented Neutrophils % 92.8 %; White Blood Count 21.1 K/mcL (4.3-11.1)
[2019-10-29 05:06] LABS: Calcium 7.8 mg/dL (8.6-10.3); Magnesium 2.5 mg/dL (1.6-2.6); Phosphorous 3.9 mg/dL (2.7-4.5); Potassium 5.6 mEq/L (3.5-5.1)
[2019-10-29] MEDS: *HR* Heparin 5,000 UNIT/ML VIAL SQ SCH ×3 (05:39→20:36)
[2019-10-29] MEDS: Artificial Tears SOLN 15 ML BOTTLE BOTH EYES SCH ×4 (08:20→20:36)
[2019-10-29] MEDS: Famotidine 20 MG/2 ML VIAL IVP SCH (08:21)
[2019-10-29] MEDS: Nicotine 14 MG PATCH.TD24 TD SCH (08:21)
[2019-10-29] MEDS: polyethylene glycoL 3350 17 GM POWD.PACK GTUBE SCH (08:21)
[2019-10-29] MEDS: Chlorhexidine Rinse 15 ML MOUTHWASH MM SCH ×2 (08:21→20:36)
[2019-10-29] MEDS: Cefepime HCl 2,000 MG in Water for inj. (sterile) 20 ML IVP SCH (08:22)
[2019-10-29] MEDS: MethylPREDNISolone 40 MG/ML VIAL IVP SCH ×2 (08:52→20:36)
[2019-10-29 09:05] LABS: Prothrombin Time 11.7 Seconds (9.4-12.1)
[2019-10-29 09:07] LABS: Activated Partial Thrombo Time 29.6 Seconds (26.0-36.0); Red Cell Distribution Width 14.6 % (11.5-14.5)
[2019-10-29 09:08] LABS: Hematocrit 29.7 % (35.3-44.9); Mean Corpuscular HGB Conc 30.3 g/dL (31.6-35.5); Nucleated Red Blood Cells 0.3 /100 WBC (0); Platelet Count 496 K/mcL (140-400); White Blood Count 29.1 K/mcL (4.3-11.1)
[2019-10-29 09:38] LABS: Lymphocytes # 1.2 K/mcL (0.6-4.6); Monocytes # 1.8 K/mcL (0.0-1.3); Neutrophils # 26.2 K/mcL (1.6-8.9)
[2019-10-29 09:39] LABS: Anisocytosis 1+ (Not Present); Platelet Estimate Increased (Normal); Polychromasia 1+ (Not Present); Toxic Granulation Present (Not Present)
[2019-10-29 17:06] LABS: Calcium 8.2 mg/dL (8.6-10.3); Potassium 5.5 mEq/L (3.5-5.1)
[2019-10-29] MEDS: Insulin Human Regular 100 UNIT in 0.9 % Sodium Chloride 100 ML IVC SCH (17:08)
[2019-10-29] MEDS: Cefepime HCl 1,000 MG in Water for inj. (sterile) 10 ML IVP SCH (20:36)
[2019-10-30] MEDS: Ipratropium/Albuterol Neb 3 ML IH SCH ×5 (00:08→16:05)
[2019-10-30] MEDS: Dexmedetomidine HCl 400 MCG/100 ML MLS IVC SCH ×3 (00:40→12:27)
[2019-10-30] MEDS: FentaNYL (PF) 1,000 MCG/100 ML IV.SOLN IVC SCH ×2 (00:46→17:07)
[2019-10-30 03:46] LABS: Basophils % 0.1 %; Hemoglobin 7.8 g/dL (11.5-15.4); Immature Granulocytes % 1.4 % (0-4); Lymphocytes # 0.5 K/mcL (0.6-4.6); Lymphocytes % 3.3 %; Mean Corpuscular Hemoglobin 29.5 pg (28.0-33.3); Mean Corpuscular Volume 98.5 fL (83.0-100.0); Mean Platelet Volume 9.9 fL (9.4-12.4); Monocytes # 0.7 K/mcL (0.0-1.3); Monocytes % 4.4 %; Nucleated Red Blood Cells 0.4 /100 WBC (0); Platelet Count 396 K/mcL (140-400); Red Blood Count 2.64 M/mcL (3.82-4.97); Red Cell Distribution Width 14.6 % (11.5-14.5); Segmented Neutrophils % 90.8 %; White Blood Count 16.5 K/mcL (4.3-11.1)
[2019-10-30 03:56] LABS: ABG Base Excess 0 mEq/L (-2 to 3); ABG HCO3 27 mEq/L (21-27); ABG Oxygen Saturation 98 % (95-98); ABG PCO2 50 mmHg (35-45); ABG PH 7.33 pH Units (7.32-7.45); ABG PO2 111 mmHg (85-104); ABG TCO2 28 mEq/L (20-26); Blood Gas Modality ASSIST CONTROL; Blood Gas VT 500 cc
[2019-10-30 04:05] LABS: Calcium 7.6 mg/dL (8.6-10.3); Magnesium 2.8 mg/dL (1.6-2.6); Phosphorous 5.2 mg/dL (2.7-4.5); Potassium 5.3 mEq/L (3.5-5.1)
[2019-10-30] MEDS: *HR* Heparin 5,000 UNIT/ML VIAL SQ SCH ×2 (05:37→15:46)
[2019-10-30] MEDS: Famotidine 20 MG/2 ML VIAL IVP SCH (08:08)
[2019-10-30] MEDS: polyethylene glycoL 3350 17 GM POWD.PACK GTUBE SCH (08:10)
[2019-10-30] MEDS: Cefepime HCl 1,000 MG in Water for inj. (sterile) 10 ML IVP SCH (08:10)
[2019-10-30] MEDS: Chlorhexidine Rinse 15 ML MOUTHWASH MM SCH (08:10)
[2019-10-30] MEDS: Artificial Tears SOLN 15 ML BOTTLE BOTH EYES SCH ×2 (09:25→12:29)
[2019-10-30] MEDS: MethylPREDNISolone 40 MG/ML VIAL IVP SCH (10:40)
[2019-10-30 18:58] VITALS: BP 109/51
== END 2019-10-30 17:15 | disposition short-term general hospital (02) | DRG 163 ==
LOC: EMEROOARM 22:40 → ICNU 10-23 00:23
PROVIDERS: ADMIT Family Medicine; ATTEND Family Medicine